=== PATIENT | female | born 1960 | race Two or more races ===

== ENCOUNTER 2018-03-23 12:23 | Inpatient (IN) | payer OTHER ==
[~2018-03-23] VITALS: Ht 157.5 cm; Wt 90.7 kg
[2018-04-12] MEDS ORDERED: LEVO-T50 MCG PO (12:53)
[2018-04-12] MEDS ORDERED: SINGULAIR 10MG10 MG PO (12:53)
[2018-04-12] MEDS ORDERED: LOSARTAN-HCTZ1 EAC1 PO (12:53)
[2018-04-12] MEDS ORDERED: ZOCOR40 MG PO (12:53)
[2018-04-12] MEDS ORDERED: PROTONIX40 MG PO (12:54)
[2018-04-12] MEDS ORDERED: CLONAZEPAM1 MG PO (12:54)
[2018-04-12] MEDS ORDERED: METFORMIN HCL500 MG PO (12:54)
== END 2018-04-22 18:31 | disposition home or self-care (01) | DRG 331 ==
LOC: SURH 04-19 07:00 → O/R 04-19 08:10 → SURG 04-19 08:10 → SURH 04-19 12:30 → SURG 04-19 18:01
PROVIDERS: ADMIT Colon & Rectal Surgery
PROC: 0DJD8ZZ Inspection of Lower Intestinal Tract, Via Natural or Artificial Opening Endoscopic (ICD-10-PCS; 2018-04-19)
PROC: 0DTN4ZZ Resection of Sigmoid Colon, Percutaneous Endoscopic Approach (ICD-10-PCS; principal; 2018-04-19 07:00)
PROC: 4A12X4Z Monitoring of Cardiac Electrical Activity, External Approach (ICD-10-PCS; 2018-04-20)
DX: K57.32 Diverticulitis of large intestine without perforation or abscess without bleeding (principal); I11.9 Hypertensive heart disease without heart failure; E03.8 Other specified hypothyroidism; E78.00 Pure hypercholesterolemia, unspecified; J45.20 Mild intermittent asthma, uncomplicated; E66.01 Morbid (severe) obesity due to excess calories

== ENCOUNTER 2019-07-14 07:05 | Day surgery (SDC) | payer OTHER ==
[~2019-07-14 07:05] MED LIST: CLONAZEPAM1 MG PO; LEVO-T50 MCG PO; LOSARTAN-HCTZ1 EAC1 PO; METFORMIN HCL500 MG PO; PROTONIX40 MG PO; SINGULAIR 10MG10 MG PO; ZOCOR40 MG PO
== END 2019-07-14 13:15 | disposition home or self-care (01) ==
LOC: AMB-ENDOS 07:05 → ADM 12:00 → AMB-ENDOS 12:00
PROVIDERS: ATTEND Colon & Rectal Surgery
DX: K63.5 Polyp of colon (principal); K64.1 Second degree hemorrhoids

== ENCOUNTER 2020-09-23 19:19 | Emergency (ER) | payer OTHER ==
[~2020-09-23] VITALS: Ht 157.5 cm; Wt 97.5 kg
[2020-09-24] MEDS ORDERED: PEPCID AC20 MG PO (00:19)
[2020-09-24] MEDS ORDERED: LEVSIN/SL0.125 MG SL (00:19)
== END 2020-09-24 00:25 | disposition home or self-care (01) ==
LOC: ER 19:19
DX: R10.32 Left lower quadrant pain (principal); R11.2 Nausea with vomiting, unspecified

== ENCOUNTER 2020-10-25 08:38 | Day surgery (SDC) | payer OTHER ==
[~2020-10-25 08:38] MED LIST changes: +LEVSIN/SL0.125 MG SL; +PEPCID AC20 MG PO
== END 2020-10-25 14:15 | disposition home or self-care (01) ==
LOC: AMB-ENDOS 08:38
PROVIDERS: ATTEND Colon & Rectal Surgery
DX: K57.32 Diverticulitis of large intestine without perforation or abscess without bleeding (principal); K64.1 Second degree hemorrhoids; Z20.822 Contact with and (suspected) exposure to COVID-19

== ENCOUNTER → 2020-12-01 | Emergency (ER) | payer OTHER ==
[~2020-12-01] VITALS: Ht 157.5 cm; Wt 89.8 kg
== END | disposition home or self-care (01) ==
LOC: ER 17:44
DX: N30.81 Other cystitis with hematuria (principal); R30.0 Dysuria

== ENCOUNTER 2021-03-30 17:52 | Emergency (ER) | payer OTHER ==
[~2021-03-30] VITALS: Ht 157.5 cm; Wt 90.7 kg
== END 2021-03-30 22:00 | disposition home or self-care (01) ==
LOC: ER 17:52
DX: N83.299 Other ovarian cyst, unspecified side (principal); R30.0 Dysuria; Z86.79 Personal history of other diseases of the circulatory system; Z88.2 Allergy status to sulfonamides

== ENCOUNTER 2021-04-15 21:40 | Emergency (ER) | payer OTHER ==
[~2021-04-15] VITALS: Ht 157.5 cm; Wt 90.7 kg
== END 2021-04-15 22:49 | disposition home or self-care (01) ==
LOC: ER 21:40
DX: M94.0 Chondrocostal junction syndrome [Tietze] (principal); M54.9 Dorsalgia, unspecified

== ENCOUNTER 2021-06-24 17:10 | Emergency (ER) | payer OTHER ==
[~2021-06-24] VITALS: Ht 157.5 cm; Wt 90.7 kg
== END 2021-06-24 20:18 | disposition home or self-care (01) ==
LOC: ER 17:10
DX: J45.998 Other asthma (principal); I10 Essential (primary) hypertension; Z88.2 Allergy status to sulfonamides; Z88.6 Allergy status to analgesic agent